=== PATIENT | female | born 1955 | race Caucasian/White ===

== ENCOUNTER → 2019-05-01 | Outpatient (CLI) | payer MEDICARE, BC ==
--- NOTE | 2019-05-01 17:17 | RAD ---
NECK SOFT TISSUE History: Lymphadenopathy. Enlarging masses. History of lymphoma. Comparison: None. Technique: Multiple grayscale and color Doppler images of the neck soft tissues were obtained. Findings: Multiple enlarged rounded hypoechoic lymph nodes within the bilateral deep cervical chain. Largest on the right measures 1.5 x 3.3 x 1.4 cm. Largest on the left measures 3.9 x 2.4 x 1.6 cm. Submental enlarged lymph nodes largest measures 0.9 x 1.1 x 1.1 cm. IMPRESSION: 1. Multiple pathologically enlarged bilateral deep cervical chain lymph nodes, concerning for lymphoma. Biopsy can further assess if indicated. Electronically signed by: Branden Abrams DO (05/01/2019 5:14 PM) [id number]
== END | disposition home or self-care (01) ==
LOC: US 12:12
PROVIDERS: ATTEND Family Medicine
DX: R59.1 Generalized enlarged lymph nodes (principal); Z85.79 Personal history of other malignant neoplasms of lymphoid, hematopoietic and related tissues
CPT/HCPCS: 76536

== ENCOUNTER 2019-06-16 17:56 | Emergency (ER) | payer MEDICARE, BC ==
[2019-06-16] MEDS ORDERED: IV NORMAL SALINE 1,000ML 1,000 ML IV ONE ×2 (18:30→20:30)
[2019-06-16] MEDS ORDERED: FAMOTIDINE 20 MG/2 ML VIAL IVP ONE (18:45)
[2019-06-16] MEDS ORDERED: PROCHLORPERAZINE 10 MG/2 ML VIAL. IV ONE (18:45)
[2019-06-16 19:41] LABS: BASO # 0.1 x10^3/uL (0.0-0.2); BASO % 0 % (0-3); EOS % 0 % (0-3); HEMATOCRIT 34.2 % (36.0-47.0); HEMOGLOBIN 11.1 g/dL (12.0-15.5); LYMPH # 0.2 x10^3/uL (1.0-4.8); LYMPH % 0 % (24-48); MEAN CORPUSCULAR HEMOGLOBIN 29 pg (25-35); MEAN CORPUSCULAR HGB CONC 32 g/dL (31-37); MEAN CORPUSCULAR VOLUME 91 fL (79-100); MONO # 0.1 x10^3/uL (0.0-1.1); MONO % 0 % (0-9); NEUT # 38.2 x10^3uL (1.8-7.7); NEUT % 99 % (31-73); PLATELET COUNT 277 x10^3/uL (140-400); RED BLOOD COUNT 3.78 x10^6/uL (3.50-5.40); RED CELL DISTRIBUTION WIDTH 13.8 % (11.5-14.5)
[2019-06-16 19:52] LABS: ALBUMIN 3.6 g/dL (3.4-5.0); ALBUMIN/GLOBULIN RATIO 0.9 (1.0-1.7); CALCIUM 9.2 mg/dL (8.5-10.1); CREATININE 1.2 mg/dL (0.6-1.0); GFR 45.1; POTASSIUM 3.1 mmol/L (3.5-5.1); TOTAL BILIRUBIN 0.5 mg/dL (0.2-1.0); TOTAL PROTEIN 7.8 g/dL (6.4-8.2)
[2019-06-16] MEDS ORDERED: POTASSIUM CHLORIDE 20 MEQ TABLET.ER. PO ONE (20:30)
[2019-06-16] MEDS ORDERED: ONDANSETRON PF 4 MG/2 ML VIAL. IVP ONE (20:30)
[2019-06-16] MEDS ORDERED: METOCLOPRAMIDE HCL 10 MG/2 ML VIAL. IVP ONE (21:30)
[2019-06-16] MEDS ORDERED: POTASSIUM BICARB 20 MEQ EFFERVESCENT TABLET. PO ONE (21:30)
[2019-06-16 22:29] LABS: % LYMPHS 2 % (24-48); % SEGS 98 % (35-66)
[2019-06-16 22:30] LABS: ANISOCYTOSIS SLIGHT; PLATELET CLUMP PRESENT; WHITE BLOOD COUNT 38.6 x10^3/uL (4.0-11.0)
[2019-06-16 22:31] LABS: PLT ESTIMATE ADEQUATE (ADEQUATE)
[2019-06-16 23:10] VITALS: BP 157/99
--- NOTE | 2019-06-17 05:41 | PHYS DOC ---
Past History Past Medical History: Cancer, High Cholesterol, Hypertension Past Surgical History: Cholecystectomy, Other Additional Past Surgical Histo: breast reduction, port for chemo Alcohol Use: Occasionally Drug Use: None Adult General Chief Complaint Chief Complaint: NAUSEA/VOMITING/DIARRHEA HPI HPI Patient is a 63-year-old female with history of non-Hodgkin's lymphoma currently on chemotherapy last chemotherapy was 4 days ago presents with nausea and vomiting, multiple episodes daily with inability keep fluids and food down despite antiemetic. Patient denies dizziness lightheadedness, chest pain palpitations, shortness breath. No fever chills, sweats. No urinary frequency urgency or burning. Patient received Neulasta injection yesterday. Patient was instructed by her [facility] oncologist to seek evaluation in the emergency department.[] Review of Systems Review of Systems Review of symptoms as per history of present illness. All other review symptoms are negative. All other systems were reviewed and found to be within normal limits, except as documented in this note. Current Medications Current Medications Current Medications Medications (Trade) Dose Ordered Sig/Oral Start Time Stop Time Status Last Admin Dose Admin Famotidine (Pepcid Vial) 20 mg 1X ONCE 06/16/19 18:45 06/16/19 18:46 DC 06/16/19 19:20 20 MG Metoclopramide HCl (Reglan Vial) 10 mg 1X ONCE 06/16/19 21:30 06/16/19 21:38 DC 06/16/19 21:28 10 MG Ondansetron HCl (Zofran) 8 mg 1X ONCE 06/16/19 20:30 06/16/19 20:31 DC 06/16/19 20:44 8 MG Potassium Bicarbonate (Potassium Effervescent Tablet) 40 meq 1X ONCE 06/16/19 21:30 06/16/19 21:38 DC 06/16/19 21:28 40 MEQ Potassium Chloride (Klor-Con) 40 meq 1X ONCE 06/16/19 20:30 06/16/19 20:31 DC 06/16/19 21:13 40 MEQ Prochlorperazine Edisylate (Compazine) 10 mg 1X ONCE 06/16/19 18:45 06/16/19 18:46 DC 06/16/19 19:20 10 MG Sodium Chloride 1,000 ml @ 1,000 mls/hr 1X ONCE 06/16/19 20:30 06/16/19 20:47 DC Allergies Allergies Allergies Coded Allergies Type Severity Reaction Last Updated Verified Ocfassp-Lef-Uqy Reductase Inhibitor Allergy Intermediate 06/16/19 Yes Physical Exam Physical Exam Constitutional: Well developed, well nourished, no acute distress, non-toxic appearance. [] HENT: Normocephalic, atraumatic, bilateral external ears normal, oropharynx moist, nose normal. [] Eyes: PERRLA, EOMI, conjunctiva normal, no discharge. [] Neck: Normal range of motion, no tenderness, supple.. [] Cardiovascular:Heart rate regular rhythm, no murmur [] Lungs & Thorax: Bilateral breath sounds clear to auscultation [] Abdomen: Bowel sounds normal, soft, no tenderness.. [] Skin: Warm, dry, no erythema, no rash. [] Back: No tenderness, no CVA tenderness. [] Extremities: No tenderness, no cyanosis, no clubbing, ROM intact, no edema. [] Neurologic: Alert and oriented X 3, normal motor function, normal sensory function, no focal deficits noted. [] Psychologic: Affect normal, judgement normal, mood normal. [] Current Patient Data Vital Signs Vital Signs Date Time Temp Pulse Resp B/P (MAP) Pulse Ox O2 Delivery O2 Flow Rate FiO2 06/16/19 23:10 104 14 157/99 (118) 96 Room Air 06/16/19 18:06 97.6 Lab Results Laboratory Tests Test 06/16/19 19:15 White Blood Count 38.6 x10^3/uL (4.0-11.0) H Red Blood Count 3.78 x10^6/uL (3.50-5.40) Hemoglobin 11.1 g/dL (12.0-15.5) L Hematocrit 34.2 % (36.0-47.0) L Mean Corpuscular Volume 91 fL (79-100) Mean Corpuscular Hemoglobin 29 pg (25-35) Mean Corpuscular Hemoglobin Concent 32 g/dL (31-37) Red Cell Distribution Width 13.8 % (11.5-14.5) Platelet Count 277 x10^3/uL (140-400) Neutrophils (%) (Auto) 99 % (31-73) H Lymphocytes (%) (Auto) 0 % (24-48) L Monocytes (%) (Auto) 0 % (0-9) Eosinophils (%) (Auto) 0 % (0-3) Basophils (%) (Auto) 0 % (0-3) Neutrophils # (Auto) 38.2 x10^3uL (1.8-7.7) H Lymphocytes # (Auto) 0.2 x10^3/uL (1.0-4.8) L Monocytes # (Auto) 0.1 x10^3/uL (0.0-1.1) Eosinophils # (Auto) 0.0 x10^3/uL (0.0-0.7) Basophils # (Auto) 0.1 x10^3/uL (0.0-0.2) Segmented Neutrophils % 98 % (35-66) H Lymphocytes % 2 % (24-48) L Platelet Estimate Adequate (ADEQUATE) Platelet Clumps, EDTA Present Anisocytosis Slight Sodium Level 137 mmol/L (136-145) Potassium Level 3.1 mmol/L (3.5-5.1) L Chloride Level 97 mmol/L (98-107) L Carbon Dioxide Level 22 mmol/L (21-32) Anion Gap 18 (6-14) H Blood Urea Nitrogen 27 mg/dL (7-20) H Creatinine 1.2 mg/dL (0.6-1.0) H Estimated GFR (Cockcroft-Gault) 45.1 BUN/Creatinine Ratio 23 (6-20) H Glucose Level 162 mg/dL (70-99) H Calcium Level 9.2 mg/dL (8.5-10.1) Total Bilirubin 0.5 mg/dL (0.2-1.0) Aspartate Amino Transferase (AST) 87 U/L (15-37) H Alanine Aminotransferase (ALT) 140 U/L (14-59) H Alkaline Phosphatase 162 U/L (46-116) H Total Protein 7.8 g/dL (6.4-8.2) Albumin 3.6 g/dL (3.4-5.0) Albumin/Globulin Ratio 0.9 (1.0-1.7) L Lipase 135 U/L (73-393) EKG EKG [EKG: Reviewed] Radiology/Procedures Radiology/Procedures [] Course & Med Decision Making Course & Med Decision Making Pertinent Labs and Imaging studies reviewed. (See chart for details) [Nausea and vomiting improved. Patient able to tolerate oral fluids and oral potassium in the emergency department. Recommendations for continued outpatient care with oncology follow-up tomorrow as planned. Return precautions reviewed.] Dragon Disclaimer Dragon Disclaimer This electronic medical record was generated, in whole or in part, using a voice recognition dictation system. Departure Departure: Impression: Primary Impression: Hypokalemia Additional Impression: Dehydration Ruled Out: Nausea and vomiting Disposition: HOME/RESIDENCE PRIOR TO ADM Condition: STABLE Patient Instructions: Nausea and Vomiting, [id number], Dehydration, Elderly, [id number], Hypokalemia-Brief Additional Instructions: Please go home and rest. Take Compazine for nausea and Zofran as needed for additional relief. Continue home potassium tablets. Follow-up with your oncology clinic provider or family caseworker tomorrow. Return to the ED if new or worsening symptoms. Problem Qualifiers STEFFANIE FIELDS DO Jun 17, 2019 05:41
== END 2019-06-16 23:12 | disposition home or self-care (01) ==
LOC: ER 17:56
DX: E87.6 Hypokalemia (principal); E86.0 Dehydration; E78.00 Pure hypercholesterolemia, unspecified; I10 Essential (primary) hypertension; Z85.72 Personal history of non-Hodgkin lymphomas; Z88.8 Allergy status to other drugs, medicaments and biological substances
CPT/HCPCS: 36415; 80053; 83690; 85007; 85025; 96361; 96374; 96375; 99285; J0780; J2405; J2765; J3490; J7030